=== PATIENT | female | born 1945 | race Caucasian/White ===

== ENCOUNTER 2021-03-11 05:39 | Emergency (ER) | payer MEDICARE, SELFPAY ==
--- NOTE | 2021-03-11 | ECG_ITS ---
Test Reason : AFIB Blood Pressure : / mmHG Vent. Rate : 061 BPM Atrial Rate : 061 BPM P-R Int : 160 ms QRS Dur : 102 ms QT Int : 484 ms P-R-T Axes : 036 -58 042 degrees QTc Int : 487 ms Normal sinus rhythm Left axis deviation Abnormal ECG When compared with ECG of 26-DEC-2005 13:52, No significant change was found Referred By: Generic ED Physician Electronically Signed By:MONIK JOHNSON
--- NOTE | ~2021-03-11 | XR_ITS ---
EXAMINATION: RIGHT KNEE 2 VIEWS RIGHT FEMUR 5 VIEWS PELVIS ONE VIEW CLINICAL INFORMATION: Pain status post fall COMPARISON: None TECHNIQUE: As above nonweightbearing FINDINGS: Acute comminuted periprosthetic fracture about the distal femur. Patient has changes of total knee arthroplasty. Hardware appears grossly intact but the fracture lines do extend to the cephalad margin of the femoral component of the prosthesis. No dislocation. Limited detail due to suboptimal positioning. Notable displacement and impaction of the fracture fragment with significant angular deformity. Degeneration right hip joint without evidence for any tandem injury. XR/XR pelvis 1-2V IMPRESSION: Acute periprosthetic fracture distal right femur as above. No tandem fracture.
--- NOTE | ~2021-03-11 | XR_ITS ---
EXAMINATION: RIGHT KNEE 2 VIEWS RIGHT FEMUR 5 VIEWS PELVIS ONE VIEW CLINICAL INFORMATION: Pain status post fall COMPARISON: None TECHNIQUE: As above nonweightbearing FINDINGS: Acute comminuted periprosthetic fracture about the distal femur. Patient has changes of total knee arthroplasty. Hardware appears grossly intact but the fracture lines do extend to the cephalad margin of the femoral component of the prosthesis. No dislocation. Limited detail due to suboptimal positioning. Notable displacement and impaction of the fracture fragment with significant angular deformity. Degeneration right hip joint without evidence for any tandem injury. XR/XR knee RT 2V IMPRESSION: Acute periprosthetic fracture distal right femur as above. No tandem fracture.
--- NOTE | ~2021-03-11 | XR_ITS ---
EXAMINATION: RIGHT KNEE 2 VIEWS RIGHT FEMUR 5 VIEWS PELVIS ONE VIEW CLINICAL INFORMATION: Pain status post fall COMPARISON: None TECHNIQUE: As above nonweightbearing FINDINGS: Acute comminuted periprosthetic fracture about the distal femur. Patient has changes of total knee arthroplasty. Hardware appears grossly intact but the fracture lines do extend to the cephalad margin of the femoral component of the prosthesis. No dislocation. Limited detail due to suboptimal positioning. Notable displacement and impaction of the fracture fragment with significant angular deformity. Degeneration right hip joint without evidence for any tandem injury. XR/XR femur RT 2V IMPRESSION: Acute periprosthetic fracture distal right femur as above. No tandem fracture.
[2021-03-11 05:48] VITALS: BP 146/60; PULSE 64; RESP 16; TEMP 37.1; O2SAT 95; BMI 28.3
[2021-03-11 05:51] VITALS: BP 136/63; PULSE 64; O2SAT 99
[2021-03-11 06:42] LABS: COVID-19 Test Negative (Negative)
[2021-03-11 06:44] LABS: Hematocrit 36.8 % (37-47); Hemoglobin 12.6 g/dl (12.0-16.0); Imm Gran Abs Auto 0.11 X10*3/uL (0.00-0.03); Imm Gran Pct Auto 0.5 % (0.0-0.4); Lymphocytes Absolute Auto 0.5 X10*3/uL (1.2-4.9); Lymphocytes Percent Auto 2.4 % (20-40); MANUAL DIFF FLAG SCAN; Mean Corpuscular HGB Conc 34.2 g/dl (31.0-35.0); Mean Corpuscular Volume 99.2 fL (80-98); Mean Platelet Volume 8.7 fL (9.4-12.3); Monocytes Percent Auto 4.8 % (2-11); Neutrophils Absolute Auto 18.7 X10*3/uL (2.0-8.3); Neutrophils Percent Auto 92.3 % (45-73); Platelet Count 220 X10*3/uL (160-400); Red Blood Count 3.71 X10*6/uL (4.20-5.50); Red Cell Distribution Width 12.1 % (11.0-16.0); SCAN SMEAR FLAG 1; White Blood Count 20.3 X10*3/uL (4.8-10.8)
[2021-03-11] MEDS: fentaNYL citrate/PF 100 MCG/2 ML VIAL 25 MCG IVPUSH ×2 (06:46→08:27)
[2021-03-11 06:51] LABS: Alanine Aminotransferase 19 U/L (0-31); Albumin Level 3.9 g/dL (3.5-5.0); Alkaline Phosphatase 61 U/L (39-117); Anion Gap 13 (12-20); Aspartate Amino Transferase 29 U/L (5-31); Bilirubin Total 0.5 mg/dL (0.0-1.0); Blood Urea Nitrogen 11 mg/dL (9-16); Calcium 9.3 mg/dL (8.4-10.2); Carbon Dioxide 25 mmol/L (22-29); Chloride 99 mmol/L (96-108); Creatinine Clr Calc Pharmacy 61.2; Estimated Glomerular Filt Rate > 60; Glucose Random 169 mg/dL (60-115); Lipase 31 U/L (8-78); Potassium 4.1 mmol/L (3.3-5.1); Sodium 133 mmol/L (135-145); Total Protein 6.1 g/dL (6.5-8.0)
[2021-03-11 06:53] LABS: Troponin-I High Sensitivity < 3.5 ng/L (<3.5-17.0)
--- NOTE | 2021-03-11 06:58 | ED_ITS ---
HPI - Fall General Chief Complaint: Fall Stated Complaint: fall Time Seen by Provider: 03/11/21 06:40 History of Present Illness HPI Narrative: This is a very pleasant 75 years old of female who this morning got up and fell, she states that today right knee gave up. She is complaining of right lower extremity pain in the pain is localized in the right knee , right distal femur. She is status post back surgery yesterday she has history of a flutter she has been off of Eliquis. She denies any head injury any neck pain MD complaint: fall Onset (ago): hour(s) (1) Fall from: standing Place fall occurred: home Loss of consciousness: none Prolonged down time: no Symptoms prior to fall: none Context: tripped/slipped Location of injury - extremities: right: knee Related Data Home Medications Medication Instructions Recorded Confirmed apixaban 5 mg tablet (Eliquis) 1 tab PO BID 03/11/21 03/11/21 flecainide 50 mg tablet 1 tab PO BID 03/11/21 03/11/21 hydrocodone 5 mg-acetaminophen 325 1 tab PO Q4H PRN 03/11/21 03/11/21 mg tablet levothyroxine 75 mcg tablet 1 tab PO DAILY 03/11/21 03/11/21 meloxicam 15 mg tablet 1 tab PO DAILY 03/11/21 03/11/21 metoprolol succinate 25 mg 1 tab PO DAILY 03/11/21 03/11/21 tablet,extended release 24 hr omeprazole 20 mg capsule,delayed 1 cap PO BID 03/11/21 03/11/21 release sertraline 25 mg tablet 1 tab PO DAILY 03/11/21 03/11/21 simvastatin 40 mg tablet 1 tab PO BEDTIME 03/11/21 03/11/21 Allergies Allergy/AdvReac Type Severity Reaction Status Date / Time lisinopril Allergy Unknown Verified 03/11/21 05:54 meperidine [From Demerol] Allergy Unknown Verified 03/11/21 05:54 morphine Allergy Unknown Verified 03/11/21 05:54 sulfamethoxazole Allergy Unknown Verified 03/11/21 05:54 [From Bactrim] trimethoprim [From Bactrim] Allergy Unknown Verified 03/11/21 05:54 Review of Systems Review of Systems: Yes all other systems are reviewed and are negative Constitutional: Constitutional: Reports no additional constitutional complaints Cardiovascular: Cardiovascular: Denies chest pain Respiratory: Respiratory: Reports no additional respiratory complaints Gastrointestinal: Gastrointestinal: Denies abdominal pain [facility] Past Medical History Attestation statement: The following information was validated with the patient. Medical History Breast cancer High cholesterol Hypertension Surgical History H/O lumpectomy History of back surgery Hx of appendectomy Hx of cholecystectomy Social History Social History Alcohol intake: never Smoked in Last 30 Days: No Use of substances other than those prescribed or required for medical reasons: No Advance Directives: No Advance Directives Information Provided: No Physical Exam Vital Signs: Vital Signs: Last Vital Signs Temp 98.8 F 03/11/21 05:48 Pulse 64 03/11/21 05:48 Resp 16 03/11/21 05:48 BP 146/60 H 03/11/21 05:48 Pulse Ox 95 03/11/21 05:48 Body Mass Index 28.3 Const: General: cooperative Nutritional Appearance: average body habitus Orientation/consciousness: oriented to person, oriented to place, oriented to time and patient oriented x3 Limitations: no limitations HENMT: Head: Yes normal to inspection Ears: hearing grossly normal bilaterally General nose exam: Normal external nose present Face and sinus: Yes normal facial exam Mouth: Normal oral and palatal mucosa present Throat: Yes posterior oropharynx normal Eyes: General: appearance normal, both eyes and all related structures Neck: Neck: Yes normal visual inspection, Yes full ROM and Yes no lymphadenopathy Chest: Chest palpation & inspection: normal inspection of the chest Resp: Effort & Inspection: normal respiratory effort and able to speak in complete sentences Auscultation: clear to auscultation bilaterally Cardio: Jugular venous distension: no JVD Palpation: normal PMI Rate: regular rate Rhythm: regular rhythm GI: Inspection: Yes normal to inspection Palpation (GI): Soft to palpation, nontender and no guarding Percussion: Yes normal to percussion Auscultation: normal bowel sounds Skin: General skin exam: elasticity normal and turgor normal Wounds: no wounds Neuro: General: oriented to person, oriented to place, oriented to time and patient oriented x3 Extrem: Other: Examination of the right lower extremity shows extra rotation to the right lower extremity there is swelling in the right knee are Course Course Course Narrative: The family is requesting transfer to [facility] they know on orthopedist there Dr Nobles, I personally spoke with Dr. Bullard on his cellphone, I also spoke with the bed placement Duyen patient was accepted in transfer at [facility] ED MDM - Fall Lab Data Result diagrams: 03/11/21 06:19 03/11/21 06:19 Labs: Lab Results 03/11/21 03/11/21 03/11/21 Range/Units 06:19 06:19 06:19 WBC 20.3 H (4.8-10.8) X10*3/uL RBC 3.71 L (4.20-5.50) X10*6/uL Hgb 12.6 (12.0-16.0) g/dl Hct 36.8 L (37-47) % MCV 99.2 H (80-98) fL MCH 34.0 H (27.0-33.0) pg MCHC 34.2 (31.0-35.0) g/dl RDW 12.1 (11.0-16.0) % Plt Count 220 (160-400) X10*3/uL MPV 8.7 L (9.4-12.3) fL Immature Gran % (Auto) 0.5 H (0.0-0.4) % Neut % (Auto) 92.3 H (45-73) % Lymph % (Auto) 2.4 L (20-40) % Nye % (Auto) 4.8 (2-11) % Eos % (Auto) 0.0 (0-4) % Baso % (Auto) 0.0 (0-2) % Lymph # (Auto) 0.5 L (1.2-4.9) X10*3/uL Nye # (Auto) 1.0 (0.1-1.2) X10*3/uL Eos # (Auto) 0.0 (0.0-0.4) X10*3/uL Baso # (Auto) 0.0 (0.0-0.2) X10*3/uL Abs Immat Gran (auto) 0.11 H (0.00-0.03) X10*3/uL Absolute Neuts (auto) 18.7 H (2.0-8.3) X10*3/uL Absolute Nucleated RBC 0.000 (0.0-0.012) X10*3/uL Nucleated RBC % (auto) 0.0 (0.0-0.2) /100WBC Smear Tech's Comments VERIFIED PT 11.4 (9.9-13.0) SEC INR 1.0 (0.9-1.1) Sodium 133 L (135-145) mmol/L Potassium 4.1 (3.3-5.1) mmol/L Chloride 99 (96-108) mmol/L Carbon Dioxide 25 (22-29) mmol/L Anion Gap 13 (12-20) BUN 11 (9-16) mg/dL Creatinine 0.79 (0.5-1.4) mg/dL Estim Creat Clear Calc 61.2 Estimated GFR > 60 Random Glucose 169 H (60-115) mg/dL Calcium 9.3 (8.4-10.2) mg/dL Total Bilirubin 0.5 (0.0-1.0) mg/dL AST 29 (5-31) U/L ALT 19 (0-31) U/L Alkaline Phosphatase 61 (39-117) U/L Troponin I High Sens (<3.5-17.0) ng/L Total Protein 6.1 L (6.5-8.0) g/dL Albumin 3.9 (3.5-5.0) g/dL Lipase 31 (8-78) U/L COVID-19 ([facility]) (Negative) COVID-19 Clin Com 03/11/21 03/11/21 Range/Units 06:19 06:19 WBC (4.8-10.8) X10*3/uL RBC (4.20-5.50) X10*6/uL Hgb (12.0-16.0) g/dl Hct (37-47) % MCV (80-98) fL MCH (27.0-33.0) pg MCHC (31.0-35.0) g/dl RDW (11.0-16.0) % Plt Count (160-400) X10*3/uL MPV (9.4-12.3) fL Immature Gran % (Auto) (0.0-0.4) % Neut % (Auto) (45-73) % Lymph % (Auto) (20-40) % Nye % (Auto) (2-11) % Eos % (Auto) (0-4) % Baso % (Auto) (0-2) % Lymph # (Auto) (1.2-4.9) X10*3/uL Nye # (Auto) (0.1-1.2) X10*3/uL Eos # (Auto) (0.0-0.4) X10*3/uL Baso # (Auto) (0.0-0.2) X10*3/uL Abs Immat Gran (auto) (0.00-0.03) X10*3/uL Absolute Neuts (auto) (2.0-8.3) X10*3/uL Absolute Nucleated RBC (0.0-0.012) X10*3/uL Nucleated RBC % (auto) (0.0-0.2) /100WBC Smear Tech's Comments PT (9.9-13.0) SEC INR (0.9-1.1) Sodium (135-145) mmol/L Potassium (3.3-5.1) mmol/L Chloride (96-108) mmol/L Carbon Dioxide (22-29) mmol/L Anion Gap (12-20) BUN (9-16) mg/dL Creatinine (0.5-1.4) mg/dL Estim Creat Clear Calc Estimated GFR Random Glucose (60-115) mg/dL Calcium (8.4-10.2) mg/dL Total Bilirubin (0.0-1.0) mg/dL AST (5-31) U/L ALT (0-31) U/L Alkaline Phosphatase (39-117) U/L Troponin I High Sens < 3.5 (<3.5-17.0) ng/L Total Protein (6.5-8.0) g/dL Albumin (3.5-5.0) g/dL Lipase (8-78) U/L COVID-19 ([facility]) Negative (Negative) COVID-19 Clin Com See Note Imaging Data femur: Radiologist's impression: None? TECHNIQUE: As above nonweightbearing? FINDINGS: Acute comminuted periprosthetic fracture about the distal femur. Patient has changes of total knee arthroplasty. Hardware appears grossly intact but the fracture lines do extend to the cephalad margin of the femoral component of the prosthesis. No dislocation. Limited detail due to suboptimal positioning. Notable displacement and impaction of the fracture fragment with significant angular deformity. Degeneration right hip joint without evidence for any tandem injury.? XR/XR femur RT 2V IMPRESSION: Acute periprosthetic fracture distal right femur as above. No tandem fracture.? ECG Data Attestation: I personally reviewed and interpreted this ECG as follows: ECG interpretation date: 03/11/21 Prior ECG tracings: available for review Pacemaker model: Normal sinus rhythm rate [address]-T segment isoelectric Discharge Plan Discharge Prescriptions: No Action hydrocodone-acetaminophen 5-325 mg tablet 1 tab PO Q4H PRN (Reason: Pain) RF: 0 meloxicam 15 mg tablet 1 tab PO DAILY RF: 0 simvastatin 40 mg tablet 1 tab PO BEDTIME RF: 0 levothyroxine 75 mcg tablet 1 tab PO DAILY RF: 0 flecainide 50 mg tablet 1 tab PO BID RF: 0 sertraline 25 mg tablet 1 tab PO DAILY RF: 0 omeprazole 20 mg capsule,delayed release(DR/EC) 1 cap PO BID RF: 0 metoprolol succinate 25 mg tablet extended release 24 hr 1 tab PO DAILY RF: 0 Eliquis 5 mg tablet 1 tab PO BID RF: 0
[2021-03-11 06:59] LABS: Prothrombin Time 11.4 SEC (9.9-13.0)
[2021-03-11 07:33] LABS: SLIDE REVIEW VERIFIED
[2021-03-11 07:51] VITALS: BP 151/55; PULSE 76; RESP 16; O2SAT 97
--- NOTE | 2021-03-11 07:53 | PC.NURSE ---
calling report to [facility] at this time
--- NOTE | 2021-03-11 07:58 | PC.NURSE ---
report given to julia at [facility]
[2021-03-11 08:27] VITALS: RESP 18
== END 2021-03-11 08:45 | disposition short-term general hospital (02) ==
PROVIDERS: Emergency Provider Emergency Medicine; PCP Internal Medicine
DX: S72.401A Unspecified fracture of lower end of right femur, initial encounter for closed fracture (principal); M97.11XA Periprosthetic fracture around internal prosthetic right knee joint, initial encounter; W01.0XXA Fall on same level from slipping, tripping and stumbling without subsequent striking against object, initial encounter; I10 Essential (primary) hypertension; E78.5 Hyperlipidemia, unspecified; I48.92 Unspecified atrial flutter; Y93.89 Activity, other specified; Y92.019 Unspecified place in single-family (private) house as the place of occurrence of the external cause; Y99.9 Unspecified external cause status; Z20.822 Contact with and (suspected) exposure to COVID-19; Z79.01 Long term (current) use of anticoagulants; Z79.02 Long term (current) use of antithrombotics/antiplatelets; Z79.899 Other long term (current) drug therapy
CPT/HCPCS: 36415; 72170; 73552; 73560; 80053; 83690; 84484; 85025; 85610; 87635; 93005; 96374; 96375; 96376; 99285; J3010